=== PATIENT | female | born 1940 | race American Indian/Alaskan Native ===

== ENCOUNTER 2020-09-13 05:42 | Day surgery (SDC) | payer MEDICARE ==
[~2020-09-13 05:42] MED LIST: HEPARIN 10,000 UNITS/10 ML VIAL IV ONE; SODIUM CHLORIDE 0.9% 250 ML IVPB IV ONE; SODIUM CHLORIDE 0.9% 500 ML IVPB IRRIGATION ONE; SODIUM CHLORIDE 0.9% IRR 1,500 ML BOTTLE IR ONE; SODIUM CHLORIDE 0.9% P/F 10 ML VIAL IV ONE; rifAMPin 600 MG VIAL IV ONE
[2020-09-13] MEDS ORDERED: MIDAZOLAM 2 MG/2 ML INJ IV NR (06:00)
[2020-09-13] MEDS ORDERED: SODIUM CHLORIDE 0.9% 1000 ML 1,000 ML IV SCH (06:00)
[2020-09-13] MEDS ORDERED: BUPIVACAINE/PF (0.5%) 5 MG/1 ML 30 ML VIAL INFILTRATI ONE (07:13)
[2020-09-13] MEDS ORDERED: SODIUM CHLORIDE P/F VIAL 10 ML 10 ML ONE (07:13)
[2020-09-13] MEDS ORDERED: HEPARIN 10,000 UNITS/10 ML VIAL ONE (07:13)
[2020-09-13] MEDS ORDERED: rifAMPin 600 MG VIAL ONE (07:13)
[2020-09-13] MEDS ORDERED: SODIUM CHLORIDE 0.9% 250ML 250 ML ONE (07:13)
[2020-09-13] MEDS ORDERED: SODIUM CHLORIDE 0.9% 500 ML 500 ML ONE (07:14)
[2020-09-13 07:24] LABS: Hematocrit 34.6 % (30.3-42.9); Hemoglobin 11.3 gm/dl (10.1-14.3); Mean Corpuscular HGB Conc 33 % (30-34); Mean Corpuscular Volume 102 fl (79-97); Platelet Count 267 K/mm3 (140-440); Red Blood Count 3.38 M/mm3 (3.65-5.03); Red Cell Distribution Width 19.2 % (13.2-15.2)
[2020-09-13] MEDS ORDERED: propofoL 200 MG/20 ML VIAL IV ONE (07:28)
[2020-09-13] MEDS ORDERED: HYDROmorphone 1 MG/1 ML INJ ONE (07:28)
[2020-09-13] MEDS ORDERED: MIDAZOLAM 2 MG/2 ML INJ ONE (07:28)
[2020-09-13] MEDS ORDERED: LIDOCAINE MPF (2%) 20 MG/1 ML VIAL 5 ML ONE (07:28)
[2020-09-13 07:36] LABS: Calcium 8.9 mg/dL (8.4-10.2)
--- NOTE | 2020-09-13 08:22 | Short Stay Summary ---
Short Stay Documentation Date of service: 09/13/20 Narrative H&P: The patient is an 80-year-old female with a history of end-stage renal disease who is currently on hemodialysis through a right internal jugular permacath. She is in need of long-term dialysis access and requires creation of an arteriovenous graft. She is right-hand dominant and will therefore have the graft placed in her left upper extremity. She has not had previous long-term dialysis access. She has no current complaints at this time. She has been given the risk, benefits, and alternative procedures and has consented to the procedure. - History Past Medical History: arthritis, dialysis, ESRD, hypertension, hyperlipidemia Past Surgical History: Other (Permacath insertion) Social history: , lives with family - Allergies and Medications Current Medications: Allergies Penicillins Allergy (Verified 09/01/20 15:57) Swelling Home Medications Medication Instructions Recorded Confirmed Last Taken Type Aspirin [Adult Aspirin] 81 mg PO DAILY 08/24/20 09/01/20 Unknown History Ergocalciferol(Vitamin D2)(Nf) 2,000 unit PO DAILY 08/24/20 09/01/20 Unknown History [Vitamin D (Nf)] Famotidine [Acid-Pep] 20 mg PO DAILY 08/24/20 09/01/20 Unknown History Losartan Potassium 100 mg PO DAILY 08/24/20 09/01/20 Unknown History [place]-3/Dha/Epa/Fish Oil [[place] 3 1 each PO DAILY 08/24/20 09/01/20 Unknown History 500 Softgel] allopurinoL [Zyloprim] 100 mg PO QDAY 08/24/20 09/01/20 Unknown History carvediloL [Coreg] 25 mg PO BID 08/24/20 09/01/20 Unknown History Active Medications Clindamycin HCl (Cleocin 900 Mg/50 Ml) 900 mg in 50 mls @ 100 mls/hr IV PREOP NR; Protocol Stop: 09/13/20 23:59 Sodium Chloride (Nacl 0.9% 1000 Ml) 1,000 mls @ 42 mls/hr IV DIRECT ANUPAM Stop: 09/13/20 23:59 Midazolam HCl (Midazolam 2 Mg/2 Ml Inj) 2 mg IV PREOP NR Stop: 09/13/20 20:00 - Physical exam General appearance: no acute distress Lungs: Normal air movement Breasts: other (Right chest permacath without overt signs of infection) Heart: Regular rate Gastrointestinal: normal Female Genitourinary: deferred Rectal Exam: deferred Extremities: no ischemia, pulses intact (Palpable radial pulses bilaterally) - Brief post op/procedure progress note Date of procedure: 09/13/20 Pre-op diagnosis: End-Stage Renal Disease Post-op diagnosis: same Procedure: Creation of Left Brachial Artery to Left Axillary Vein Arteriovenous Graft with 5 mm Bovine Artegraft Anesthesia: MAC, regional Surgeon: JOSSELIN HERNANDEZ Estimated blood loss: minimal Pathology: none Condition: stable - Disposition Condition at discharge: Good Disposition: DC-01 TO HOME OR SELFCARE Short Stay Discharge Plan Activity: other (No heavy lifting with left arm for 2 weeks.) Wound: open to air, keep clean and dry, other (Okay to wash left arm wounds with soap and water but do not soak in water for 2 weeks.) Follow up with: JOSSELIN HERNANDEZ MD [Staff Physician] - 14 Days Prescriptions: HYDROcodone/APAP 5-325 [[place] 5/325] 1 each PO Q6HR PRN #30 tablet PRN Reason: Pain
--- NOTE | 2020-09-13 08:31 | Anesthesia Consultation ---
Anesthesia Consult and Med Hx Date of service: 09/13/20 - Airway Anesthetic Teeth Evaluation: Dentures ROM Head & Neck: Adequate Mental/Hyoid Distance: Adequate Mallampati Class: Class II Intubation Access Assessment: Probably Good - Pre-Operative Health Status ASA Pre-Surgery Classification: ASA3 Proposed Anesthetic Plan: MAC Nerve Block: supraclavicular - Pulmonary Hx Smoking: No Hx Respiratory Symptoms: No - Cardiovascular System Hx Hypertension: Yes (given home dose nifedipine in preop) Hx Heart Attack/AMI: No Hx Percutaneous Transluminal Coronary Angioplasty (PTCA): No Hx Cardia Arrhythmia: No - Central Nervous System CVA: No - Endocrine Hx End Stage Renal Disease: Yes (last HD 09/12/20) Hx Liver Disease: No Hx Insulin Dependent Diabetes: No Hx Non-Insulin Dependent Diabetes: No Hx Thyroid Disease: No - Other Systems Hx Obesity: No - Additional Comments Anesthesia Medical History Comments: No hx anesthetic complications.
--- NOTE | 2020-09-13 08:32 | Anesthesia Day of Surgery ---
Anesthesia Day of Surgery - Day of Surgery Patient Examined: Yes Patient H&P Reviewed: Yes Patient is NPO: Yes Beta Blockers: No (patient reports coreg d/c'd by automotive refinisher)
[2020-09-13] MEDS ORDERED: SODIUM CHLORIDE 0.9% IRR 1,500 ML BOTTLE IR ONE (09:21)
[2020-09-13] MEDS ORDERED: SODIUM CHLORIDE 0.9% 250 ML IVPB IV ONE (09:21)
[2020-09-13] MEDS ORDERED: SODIUM CHLORIDE 0.9% P/F 10 ML VIAL IV ONE (09:21)
[2020-09-13] MEDS ORDERED: rifAMPin 600 MG VIAL IV ONE (09:21)
[2020-09-13] MEDS ORDERED: HEPARIN 10,000 UNITS/10 ML VIAL IV ONE (09:21)
[2020-09-13] MEDS ORDERED: ONDANSETRON 4 MG/2 ML INJ ONE (10:25)
--- NOTE | 2020-09-13 10:44 | Operative Report ---
Operative Report Operative Report: Date of procedure: 09/13/2020 Pre-operative diagnosis: End-Stage Renal Disease Post-operative diagnosis: Same Procedure(s): 1. Creation of Left Brachial Artery to Axillary Vein AV Graft with 5 mm Bovine Graft Artergraft Surgeon: Javed Reyes MD Kit Assembler: None Anesthesia: Regional/MAC EBL: Minimal Counts: Correct Complications: None Condition: Stable Findings: Successful Creation of Left Arm AV Graft with Palpable Thrill and Palpable Radial Pulse at the Completion of the Case. Specimen: None Indication: The patient is an 80-year-old female with a history of end-stage renal disease who is currently on hemodialysis through a right internal jugular permacath. She is in need of long-term dialysis access in his right hand dominant. She requires creation of a left arm arteriovenous graft. She was given the risk, benefits, and alternative procedures and consented to the procedure. Description of Procedure: Prior to being transported to the operating room the patient had a regional block of the left arm performed. After the block was performed the patient was transported to the operating room and adequately sedated. The patient's left arm was then prepped and draped in normal sterile fashion. A longitudinal incision was made on the medial aspect of the arm just proximal to the antecubital crease and carried down to the brachial artery using sharp dissection. The brachial artery was dissected out circumferentially both proximally and distally and controlled with vessel loops. A second incision was created in longitudinal fashion on the medial aspect of the arm just distal to the axillary crease and carried down to the axillary vein using sharp dissection. Axillary vein was dissected out circumferentially and controlled with a vessel loop. I then used a Kathe-Wick tunneler to tunnel from the brachial artery incision to the axillary vein incision and then put an 5 mm bovine through the tunnel. I infused with heparinized saline to ensure that it was not twisted or kinked. I put the brachial artery vessel loops on tension controlling the flow and then created an arteriotomy using an 11 blade and Urban scissors. I beveled the graft and created an end-to-side anastomosis using 6-0 Prolene running fashion. I clamped the graft just proximal to the anastomosis and then released the vessel loops restoring flow in the brachial artery. I placed quick clot in incision to achieve hemostasis. I cut the proximal end of the graft to the appropriate length and beveled the graft in preparation for a venous anastomosis. I controlled the axillary vein a Satinsky clamp and created a venotomy using an 11 blade and Urban scissors. I created an end to side a nastomosis using a 6-0 Prolene in running fashion. Prior to completing the anastomosis I flushed the graft to ensure there was no thrombus and then completed the anastamosis. I released all clamps allowing flow into the AV graft which had an adequate thrill. I achieved hemostasis within the wounds with direct pressure, Robel, and Surgicel. I closed both wounds in 2 layers using 3-0 Vicryl in running fashion in the deep dermal layer and 4-0 Monocryl in running fashion the subcuticular layer. I dressed both wounds with Dermabond. The patient tolerated the procedure well all sponge, needle, and instrument counts were correct. The patient was taken to recovery in stable condition.
--- NOTE | 2020-09-13 14:35 | Post Anesthesia Evaluation ---
- Post Anesthesia Evaluation Patient Participated: Yes Airway Patent: Yes Stable Respiratory Function: Yes Nausea/Vomiting: No Temp > 96.8F: Yes Pain Manageable: Yes Adequeate Hydration: Yes Anesthesia Complications: No Block Receding Appropriately: Yes (sling provided)
[2020-09-13 16:06] VITALS: BP 140/75
== END 2020-09-13 05:43 | disposition home or self-care (01) ==
LOC: OR 05:42
PROVIDERS: ATTEND Surgery Vascular Surgery
DX: I12.0 Hypertensive chronic kidney disease with stage 5 chronic kidney disease or end stage renal disease (principal); N18.6 End stage renal disease; E78.00 Pure hypercholesterolemia, unspecified; M19.90 Unspecified osteoarthritis, unspecified site; Z98.890 Other specified postprocedural states; Z90.710 Acquired absence of both cervix and uterus; Z88.0 Allergy status to penicillin; Z79.899 Other long term (current) drug therapy
CPT/HCPCS: 36415; 36830; 64415; 80048; 85027; C1768; J1170; J1644; J2250; J2405; J2704; J3490; J7030; J7040; J7050; 64450